=== PATIENT | female | born 1950 | race Caucasian/White ===

== ENCOUNTER 2017-10-15 19:04 | Inpatient (IN) | payer OTHER, MEDICARE ==
[~2017-10-15] VITALS: Ht 157.5 cm; Wt 84.1 kg
[~2017-10-15 19:04] MED LIST: ACYC400 PO; ACYC800 PO; ALPR.5 PO; ALPR1 PO; AZIT250 PO; Ativan1 MG PO; CHOL10002; CHOL10002 PO; CIPR500 PO; CLOT10 PO; COLE1 PO; CYAN1000 PO; FLUC150A PO; GABA100 PO; GENT.3OPO TOP; HYDPAM25 PO; IBUP800 PO; Imitrex100 MG PO; K-Dur20 MEQ PO; LEVO750 PO; LISHYD2025 PO; LISI20 PO; LORA.5 PO; LORA1 PO; LOSA25 PO; METO25 PO; METO50 PO; METR70GEL VAG; Magic Bullet10 MG PR; Metrocream45 GM TOP; OMEP20ER PO; OMEPRAZOLE MAGN20 MG PO; ONDA8 PO; OXYC10TA19 PO; OXYC15ER PO; OXYC5 PO; PHENA200 PO; POTCHL10ER PO; PROM25 PO; QUET100 PO; ROPI1 PO; SERT100 PO; SUMA25 PO; SUMA6I SC; Seroquel Xr50 MG PO; TRAZ100 PO; ZOLP10 PO; ZOLP5 PO; [UNRECOGNIZED DRUG - REMARK]; oxycodone
[2017-10-15 19:51] LABS: BASOPHILS ABSOLUTE AUTO 0.04 K/mm3 (0.00-0.23); BASOPHILS PERCENT AUTO 0 % (0-2); EOSINOPHILS ABSOLUTE AUTO 0.02 K/mm3 (0.00-0.68); EOSINOPHILS PERCENT AUTO 0 % (0-6); Hemoglobin 11.8 g/dL (11.5-16.0); IMMATURE GRAN ABSOLUTE AUTO 0.07 K/mm3 (0.00-0.10); IMMATURE GRAN PERCENT AUTO 1 % (0-1); LYMPHOCYTES ABSOLUTE AUTO 3.37 K/mm3 (0.84-5.20); LYMPHOCYTES PERCENT AUTO 26 % (21-46); MONOCYTES ABSOLUTE AUTO 0.84 K/mm3 (0.16-1.47); MONOCYTES PERCENT AUTO 6 % (4-13); Mean Corpuscular HGB 27.4 pg (26.0-34.0); Mean Corpuscular HGB Conc 31.1 g/dL (31.5-36.5); Mean Corpuscular Volume 88 fL (80-100); NEUTROPHILS ABSOLUTE AUTO 8.83 K/mm3 (1.96-9.15); NEUTROPHILS PERCENT AUTO 67 % (41-73); Platelet Count 395 K/mm3 (150-400); RDW Standard Deviation 48.3 fL (35.1-46.3); Red Blood Cell Count 4.31 M/mm3 (3.80-5.20); White Blood Cell Count 13.17 K/mm3 (4.00-11.30)
[2017-10-15 20:09] LABS: Alanine Aminotransfer (ALT/SGP 36 U/L (12-78); Albumin, Blood 4.4 g/dL (3.4-5.0); Alk Phos 117 U/L (50-136); Anion Gap 14 mmol/L (6-16); Aspartate Aminotrans (AST/SGOT 23 U/L (12-37); Bilirubin, Total 0.7 mg/dL (0.1-1.0); Blood Urea Nitrogen 14 mg/dL (8-24); Bun/Creatinine Ratio 23.1 (12.0-20.0); CO2, Blood 23 mmol/L (21-32); Calcium, Blood 9.5 mg/dL (8.5-10.1); Chloride, Blood 106 mmol/L (98-108); Creatinine, Blood 0.61 mg/dL (0.40-1.00); Ethanol (Alcohol), Blood, Med <3 mg/dL; Globulin, Blood 4.4 g/dL (2.2-4.0); Glomerular Filtration Rate >60 (60-); Glucose, Blood 129 mg/dL (70-99); Potassium, Blood 3.2 mmol/L (3.5-5.5); Sodium, Blood 143 mmol/L (136-145); Total Protein, Blood 8.8 g/dL (6.4-8.2)
[2017-10-15 20:34] LABS: Bicarbonate Venous 25.6 mmol/L (24.0-30.0); PCO2 Venous 33.4 mmHg (38-42); PO2 Venous 72.1 mmHg (38-42); pH Blood Venous 7.48 (7.34-7.37)
[2017-10-15 20:41] LABS: Troponin I <0.015 ng/mL (0.000-0.040)
[2017-10-15 20:43] LABS: Thyroid Stimulating Hormone 0.256 uIU/mL (0.360-4.800)
[2017-10-15 20:57] LABS: Salicylate 1.8 mg/dL (2.8-20.0)
[2017-10-15 21:06] LABS: Acetaminophen, Random <2.0 ug/mL (10.0-30.0)
[2017-10-15 21:16] LABS: Source, Urine Catheter
[2017-10-15 21:17] LABS: Bilirubin, Urine Neg (Neg); Blood, Urine 4+ (Neg); Glucose Qualitative, Urine Neg (Neg); Ketones, Urine 4+ (Neg); Leukocyte Esterase, Urine Neg (Neg); Nitrite, Urine Neg (Neg); Protein, Urine 3+ (Neg); Specific Gravity, Urine 1.015 (1.003-1.022); Urobilinogen, Urine NORM (Normal)
[2017-10-15] MEDS ORDERED: LITH300C PO (21:29)
[2017-10-15] MEDS ORDERED: Pyridium100 MG PO (21:29)
[2017-10-15 21:30] LABS: U Amphetamine Screen Not Detected; U Methamphetamine Screen Not Detected
[2017-10-15 21:31] LABS: U Barbituate Screen Not Detected; U Benzodiazapine Screen DETECTED; U Buprenorphine Screen Not Detected; U Cannabinoids Screen DETECTED; U Cocaine Screen Not Detected; U Methadone Screen Not Detected; U Opiates Screen Not Detected; U Oxycodone Screen DETECTED; U Phencyclidine Screen Not Detected; U Propoxyphene Screen Not Detected
[2017-10-15] MEDS ORDERED: CLON.1 PO (21:31)
[2017-10-15 21:32] LABS: Appearance, Urine Clear (Clear); Color, Urine Yellow (P-Yellow)
[2017-10-15 21:33] LABS: Bacteria Few /hpf; Mucus Light (0-Heavy); Squamous Epithelial Cells Not Seen /hpf (Few)
[2017-10-15 22:02] LABS: Lithium <0.20 mmol/L (0.60-1.20)
[2017-10-16 05:47] LABS: Alanine Aminotransfer (ALT/SGP 32 U/L (12-78); Albumin, Blood 3.9 g/dL (3.4-5.0); Alk Phos 100 U/L (50-136); Anion Gap 13 mmol/L (6-16); Aspartate Aminotrans (AST/SGOT 17 U/L (12-37); Blood Urea Nitrogen 11 mg/dL (8-24); Bun/Creatinine Ratio 19.7 (12.0-20.0); CO2, Blood 22 mmol/L (21-32); Calcium, Blood 8.9 mg/dL (8.5-10.1); Chloride, Blood 107 mmol/L (98-108); Creatinine, Blood 0.56 mg/dL (0.40-1.00); Glomerular Filtration Rate >60 (60-); Glucose, Blood 105 mg/dL (70-99); Potassium, Blood 3.2 mmol/L (3.5-5.5); Sodium, Blood 142 mmol/L (136-145); Total Protein, Blood 7.9 g/dL (6.4-8.2)
== END 2017-10-17 11:37 | disposition home or self-care (01) | DRG 92 ==
LOC: ER 19:04 → MEDS 22:03 → ENPENDDIS 10-17 09:39 → MEDS 10-17 11:37
PROVIDERS: Emergency Medicine; Hospitalist
DX: G92 Toxic encephalopathy (principal); F11.20 Opioid dependence, uncomplicated; I12.9 Hypertensive chronic kidney disease with stage 1 through stage 4 chronic kidney disease, or unspecified chronic kidney disease; N18.9 Chronic kidney disease, unspecified; E87.6 Hypokalemia; G89.29 Other chronic pain; M54.9 Dorsalgia, unspecified; F32.9 Major depressive disorder, single episode, unspecified; G47.30 Sleep apnea, unspecified; F41.9 Anxiety disorder, unspecified; F10.21 Alcohol dependence, in remission; K21.9 Gastro-esophageal reflux disease without esophagitis; Z79.899 Other long term (current) drug therapy; Z90.710 Acquired absence of both cervix and uterus; Z90.49 Acquired absence of other specified parts of digestive tract; Z87.440 Personal history of urinary (tract) infections
CPT/HCPCS: 36415; 70450; 71045; 80053; 80178; 81001; 82803; 82947; 84439; 84443; 84484; 85025; 93005; 93010; 96361; 96374; 99285; G0480; J1650; J2060; J7030; J7120; P9612

== ENCOUNTER 2017-10-20 01:33 | Inpatient (IN) | payer MEDICARE ==
[~2017-10-20] VITALS: Ht 157.5 cm; Wt 82.5 kg
[~2017-10-20 01:33] MED LIST changes: +CLON.2 PO; +LITH300C PO; +Pyridium100 MG PO
[2017-10-20 02:03] LABS: BASOPHILS ABSOLUTE AUTO 0.04 K/mm3 (0.00-0.23); BASOPHILS PERCENT AUTO 0 % (0-2); EOSINOPHILS ABSOLUTE AUTO 0.07 K/mm3 (0.00-0.68); EOSINOPHILS PERCENT AUTO 1 % (0-6); Hematocrit 40.4 % (33.0-51.0); IMMATURE GRAN ABSOLUTE AUTO 0.07 K/mm3 (0.00-0.10); IMMATURE GRAN PERCENT AUTO 1 % (0-1); LYMPHOCYTES ABSOLUTE AUTO 4.08 K/mm3 (0.84-5.20); LYMPHOCYTES PERCENT AUTO 35 % (21-46); MONOCYTES ABSOLUTE AUTO 0.78 K/mm3 (0.16-1.47); MONOCYTES PERCENT AUTO 7 % (4-13); Mean Corpuscular HGB 28.3 pg (26.0-34.0); Mean Corpuscular HGB Conc 32.2 g/dL (31.5-36.5); Mean Corpuscular Volume 88 fL (80-100); Mean Platelet Volume 11.2 fL (9.1-12.4); NEUTROPHILS ABSOLUTE AUTO 6.59 K/mm3 (1.96-9.15); NEUTROPHILS PERCENT AUTO 57 % (41-73); Platelet Count 351 K/mm3 (150-400); RDW Coefficient Variation 14.8 % (11.7-14.2); RDW Standard Deviation 47.8 fL (35.1-46.3); Red Blood Cell Count 4.59 M/mm3 (3.80-5.20); White Blood Cell Count 11.63 K/mm3 (4.00-11.30)
[2017-10-20 02:19] LABS: International Normalized Ratio 1.02; Prothrombin Time Results 10.5 Sec (9.7-11.5)
[2017-10-20 02:21] LABS: Anion Gap 13 mmol/L (6-16); Blood Urea Nitrogen 24 mg/dL (8-24); Bun/Creatinine Ratio 10.1 (12.0-20.0); CO2, Blood 22 mmol/L (21-32); Calcium, Blood 8.8 mg/dL (8.5-10.1); Chloride, Blood 104 mmol/L (98-108); Creatinine, Blood 2.38 mg/dL (0.40-1.00); Ethanol (Alcohol), Blood, Med <3 mg/dL; Glomerular Filtration Rate 22 (60-); Glucose, Blood 118 mg/dL (70-99); Potassium, Blood 3.4 mmol/L (3.5-5.5); Sodium, Blood 139 mmol/L (136-145); Troponin I <0.015 ng/mL (0.000-0.040)
[2017-10-20] MEDS ORDERED: DULO60 PO (02:31)
[2017-10-20 02:38] LABS: Blood, Urine 3+ (Neg); Glucose Qualitative, Urine Neg (Neg); Ketones, Urine 1+ (Neg); Leukocyte Esterase, Urine 1+ (Neg); Nitrite, Urine Pos (Neg); Protein, Urine 3+ (Neg); Urobilinogen, Urine 3+ (Normal)
[2017-10-20 02:39] LABS: Bilirubin, Urine 3+ (Neg); Color, Urine Orange (P-Yellow)
[2017-10-20 02:40] LABS: Appearance, Urine Hazy (Clear)
[2017-10-20 02:41] LABS: Amorphous Light (0-Heavy); Bacteria Mod /hpf; Granular Casts 0-2 /lpf (0); Hyaline Casts 25-50 /lpf (0-2); Red Blood Cells, Urine Rare /hpf (0-2); Squamous Epithelial Cells Not Seen /hpf (Few); White Blood Cells, Urine 50-100 /hpf (0-5)
[2017-10-20 02:43] LABS: U Amphetamine Screen Not Detected; U Barbituate Screen Not Detected; U Benzodiazapine Screen DETECTED; U Buprenorphine Screen Not Detected; U Cannabinoids Screen DETECTED; U Cocaine Screen Not Detected; U Methadone Screen Not Detected; U Methamphetamine Screen Not Detected; U Opiates Screen Not Detected; U Oxycodone Screen DETECTED; U Phencyclidine Screen Not Detected; U Propoxyphene Screen Not Detected
[2017-10-20 03:52] LABS: Alanine Aminotransfer (ALT/SGP 36 U/L (12-78); Albumin, Blood 4.4 g/dL (3.4-5.0); Albumin/Globulin Ratio 1.1 (0.8-1.8); Alk Phos 109 U/L (50-136); Aspartate Aminotrans (AST/SGOT 26 U/L (12-37); Bilirubin, Total 0.5 mg/dL (0.1-1.0); Globulin, Blood 4.1 g/dL (2.2-4.0); Total Protein, Blood 8.5 g/dL (6.4-8.2)
[2017-10-20] MEDS ORDERED: SUMATRIPTAN SC (04:46)
[2017-10-20 12:25] LABS: Lithium <0.20 mmol/L (0.60-1.20)
[2017-10-21 04:37] LABS: BASOPHILS ABSOLUTE AUTO 0.03 K/mm3 (0.00-0.23); BASOPHILS PERCENT AUTO 0 % (0-2); EOSINOPHILS ABSOLUTE AUTO 0.18 K/mm3 (0.00-0.68); EOSINOPHILS PERCENT AUTO 3 % (0-6); Hematocrit 32.2 % (33.0-51.0); Hemoglobin 10.3 g/dL (11.5-16.0); IMMATURE GRAN ABSOLUTE AUTO 0.02 K/mm3 (0.00-0.10); IMMATURE GRAN PERCENT AUTO 0 % (0-1); LYMPHOCYTES ABSOLUTE AUTO 3.23 K/mm3 (0.84-5.20); LYMPHOCYTES PERCENT AUTO 46 % (21-46); MONOCYTES ABSOLUTE AUTO 0.47 K/mm3 (0.16-1.47); MONOCYTES PERCENT AUTO 7 % (4-13); Mean Corpuscular HGB 28.3 pg (26.0-34.0); Mean Corpuscular Volume 89 fL (80-100); Mean Platelet Volume 11.5 fL (9.1-12.4); NEUTROPHILS ABSOLUTE AUTO 3.09 K/mm3 (1.96-9.15); NEUTROPHILS PERCENT AUTO 44 % (41-73); Platelet Count 267 K/mm3 (150-400); RDW Coefficient Variation 14.6 % (11.7-14.2); RDW Standard Deviation 46.7 fL (35.1-46.3); Red Blood Cell Count 3.64 M/mm3 (3.80-5.20); White Blood Cell Count 7.02 K/mm3 (4.00-11.30)
[2017-10-21 05:13] LABS: Alanine Aminotransfer (ALT/SGP 18 U/L (12-78); Albumin, Blood 3.1 g/dL (3.4-5.0); Albumin/Globulin Ratio 0.9 (0.8-1.8); Alk Phos 79 U/L (50-136); Anion Gap 9 mmol/L (6-16); Aspartate Aminotrans (AST/SGOT 12 U/L (12-37); Bilirubin, Total 0.5 mg/dL (0.1-1.0); Blood Urea Nitrogen 12 mg/dL (8-24); Bun/Creatinine Ratio 16.2 (12.0-20.0); CO2, Blood 24 mmol/L (21-32); Calcium, Blood 7.9 mg/dL (8.5-10.1); Chloride, Blood 110 mmol/L (98-108); Creatinine, Blood 0.74 mg/dL (0.40-1.00); Globulin, Blood 3.3 g/dL (2.2-4.0); Glomerular Filtration Rate >60 (60-); Glucose, Blood 98 mg/dL (70-99); Potassium, Blood 3.3 mmol/L (3.5-5.5); Sodium, Blood 143 mmol/L (136-145)
[2017-10-21 05:27] LABS: Total Protein, Blood 6.4 g/dL (6.4-8.2)
[2017-10-22 05:47] LABS: Anion Gap 11 mmol/L (6-16); Blood Urea Nitrogen 10 mg/dL (8-24); Bun/Creatinine Ratio 13.6 (12.0-20.0); CO2, Blood 24 mmol/L (21-32); Calcium, Blood 8.9 mg/dL (8.5-10.1); Chloride, Blood 108 mmol/L (98-108); Creatinine, Blood 0.73 mg/dL (0.40-1.00); Glomerular Filtration Rate >60 (60-); Glucose, Blood 121 mg/dL (70-99); Potassium, Blood 3.2 mmol/L (3.5-5.5); Sodium, Blood 143 mmol/L (136-145)
[2017-10-22] MEDS ORDERED: ROXICODONE5 MG PO (12:02)
[2017-10-22] MEDS ORDERED: Acetaminophen325 M1 PO (12:03)
[2017-10-22] MEDS ORDERED: BENZ2 PO (12:04)
[2017-10-22] MEDS ORDERED: Haldol 5 mg Tab5 MG PO (12:06)
== END 2017-10-22 14:42 | disposition home or self-care (01) | DRG 92 ==
LOC: ER 01:33 → MEDS 03:05 → ENPENDDIS 10-22 10:42 → MEDS 10-22 14:42
PROVIDERS: Emergency Medicine; Internal Medicine
DX: G92 Toxic encephalopathy (principal); N17.9 Acute kidney failure, unspecified; F32.3 Major depressive disorder, single episode, severe with psychotic features; N39.0 Urinary tract infection, site not specified; T40.605A Adverse effect of unspecified narcotics, initial encounter; F32.9 Major depressive disorder, single episode, unspecified; R33.9 Retention of urine, unspecified; F29 Unspecified psychosis not due to a substance or known physiological condition; E86.0 Dehydration; G89.4 Chronic pain syndrome; G43.909 Migraine, unspecified, not intractable, without status migrainosus; E66.01 Morbid (severe) obesity due to excess calories; G47.30 Sleep apnea, unspecified; E78.5 Hyperlipidemia, unspecified; I12.9 Hypertensive chronic kidney disease with stage 1 through stage 4 chronic kidney disease, or unspecified chronic kidney disease; N18.9 Chronic kidney disease, unspecified; Z66 Do not resuscitate; Z68.31 Body mass index [BMI] 31.0-31.9, adult; Z91.040 Latex allergy status; Z79.899 Other long term (current) drug therapy; Z88.8 Allergy status to other drugs, medicaments and biological substances; Z88.5 Allergy status to narcotic agent; Z88.2 Allergy status to sulfonamides; Z90.49 Acquired absence of other specified parts of digestive tract; Z90.710 Acquired absence of both cervix and uterus
CPT/HCPCS: 36415; 70450; 71045; 74018; 76770; 80048; 80053; 80178; 81001; 84443; 84484; 85025; 85610; 87086; 92526; 92610; 93005; 93010; 96360; 99285; G0480; G8996; G8997; G8998; J0360; J0696; J1630; J1650; J2060; J7030; P9612

== ENCOUNTER 2018-12-09 00:28 | Observation (INO) | payer MEDICARE ==
[~2018-12-09] VITALS: Ht 157.5 cm; Wt 105.2 kg
[~2018-12-09 00:28] MED LIST changes: +Acetaminophen325 M1 PO; +BENZ2 PO; +DULO60 PO; +Haldol 5 mg Tab5 MG PO; +ROXICODONE5 MG PO; +SUMATRIPTAN SC
[2018-12-09 01:59] LABS: Bilirubin, Total 0.3 mg/dL (0.1-1.0); Bun/Creatinine Ratio 8.1 (12.0-20.0); Calcium, Blood 8.8 mg/dL (8.5-10.1); Creatinine, Blood 2.36 mg/dL (0.40-1.00); Globulin, Blood 4.1 g/dL (2.2-4.0); Potassium, Blood 3.4 mmol/L (3.5-5.5); Total Protein, Blood 8.1 g/dL (6.4-8.2)
[2018-12-09 02:06] LABS: BASOPHILS ABSOLUTE AUTO 0.04 K/mm3 (0.00-0.23); BASOPHILS PERCENT AUTO 0 % (0-2); EOSINOPHILS ABSOLUTE AUTO 0.19 K/mm3 (0.00-0.68); EOSINOPHILS PERCENT AUTO 2 % (0-6); Hematocrit 40.9 % (33.0-51.0); Hemoglobin 12.6 g/dL (11.5-16.0); IMMATURE GRAN ABSOLUTE AUTO 0.04 K/mm3 (0.00-0.10); IMMATURE GRAN PERCENT AUTO 0 % (0-1); LYMPHOCYTES ABSOLUTE AUTO 3.96 K/mm3 (0.84-5.20); LYMPHOCYTES PERCENT AUTO 32 % (21-46); MONOCYTES ABSOLUTE AUTO 0.89 K/mm3 (0.16-1.47); MONOCYTES PERCENT AUTO 7 % (4-13); Mean Corpuscular HGB 28.4 pg (26.0-34.0); Mean Corpuscular HGB Conc 30.8 g/dL (31.5-36.5); Mean Corpuscular Volume 92 fL (80-100); Mean Platelet Volume 11.2 fL (9.1-12.4); NEUTROPHILS PERCENT AUTO 59 % (41-73); Platelet Count 313 K/mm3 (150-400); RDW Coefficient Variation 15.4 % (11.7-14.2); RDW Standard Deviation 52.3 fL (35.1-46.3); Red Blood Cell Count 4.44 M/mm3 (3.80-5.20); White Blood Cell Count 12.42 K/mm3 (4.00-11.30)
[2018-12-09 03:12] LABS: Ethanol (Alcohol), Blood, Med <3 mg/dL; Magnesium, Blood 2.1 mg/dL (1.6-2.4)
[2018-12-09 03:24] LABS: Source, Urine Clean Catch
[2018-12-09 03:26] LABS: Blood, Urine 2+ (Neg); Glucose Qualitative, Urine Neg (Neg); Ketones, Urine 1+ (Neg); Leukocyte Esterase, Urine 1+ (Neg); Nitrite, Urine Neg (Neg); Protein, Urine 2+ (Neg); Specific Gravity, Urine 1.025 (1.003-1.022); Urobilinogen, Urine NORM (Normal)
[2018-12-09] MEDS ORDERED: VERA180ERB PO (03:36)
[2018-12-09] MEDS ORDERED: SEROQUEL (03:37)
[2018-12-09] MEDS ORDERED: RISP1 PO (03:37)
[2018-12-09] MEDS ORDERED: IMIP25 PO (03:38)
[2018-12-09 03:39] LABS: U Amphetamine Screen Not Detected; U Barbituate Screen Not Detected; U Benzodiazapine Screen DETECTED; U Buprenorphine Screen Not Detected; U Cannabinoids Screen DETECTED; U Cocaine Screen Not Detected; U Methadone Screen Not Detected; U Methamphetamine Screen Not Detected; U Opiates Screen DETECTED; U Oxycodone Screen DETECTED; U Phencyclidine Screen Not Detected; U Propoxyphene Screen Not Detected
[2018-12-09] MEDS ORDERED: ZOFRAN (03:39)
[2018-12-09 03:40] LABS: Appearance, Urine Hazy (Clear); Bilirubin, Urine 2+ (Neg); Color, Urine Amber (P-Yellow)
[2018-12-09 03:41] LABS: Amorphous Mod ({null, 0-Heavy}); Bacteria Mod /hpf; Squamous Epithelial Cells Not Seen /hpf (Few)
--- NOTE | 2018-12-09 06:22 | NUR ---
PATIENT IS A NEW ADMIT FROM THE ED. FOUR PERSON TRANSFER FROM [facility] TO BED. AXOX 3 AND SLOW TO RESPOND. NS INFUSING FROM THE ED WITHOUT A PUMP. PATIENT ORIENTED TO ROOM AND CALL LIGHT SYSTEM. SPOUSE PRESENT FOR ADMIT AND LEFT WHEN ASSESSMENT COMPLETE. DENIES PAIN, SOB, AND N/V. CALL LIGHT IN REACH.
--- NOTE | 2018-12-09 16:50 | NUR ---
SHIFT SUMMARY: PT IS ALERT TO SELF AND SITUATION AND SLEPT ALL MORNING UNTIL AROUND LUNCH TIME WHEN SHE WOKE UP C/O A MIGRAINE. DR DWYER WAS CALLED AND MESSAGE LEFT AND PT WAS NOTIFIED OF THIS AND BECAME VERY AGGITATED. WAS CALLED BACK AND ORDER WAS INPUT FOR IMMATREX. PT RECEIVED MED ORDERED ALONG WITH ICE PACKS FOR MIGRAINE PAIN, LIGHTS WERE DIMMED AND PT WAS ABLE TO FALL ASLEEP. PT REPORTS THAT THE IMMATREX WAS EFFECTIVE EVEN THOUGH SHE USUALLY TAKES THE PILL AND THE SHOT AT HOME. PT WAS HERE THIS AFTERNOON AND IS VERY INVOLVED IN PT CARE. SHE CALLS FOR HELP WITH CALL LIGHT WHEN NEEDED.
--- NOTE | 2018-12-09 17:14 | NUR ---
PT IS VERY AGITATED AND YELLING ABOUT NOT RECEIVING HER INJECTIBLE MEDICATION FOR HER MIGRAINE. THE DOCTOR HAD BEEN NOTIFIED AND THE PHARMACY SENT THE MEDICATION BUT THE PT CONTINUES TO YELL STATING SHE SHOULD HAVE HAD THIS HOURS AGO. PT IS VERY EMOTIONALLY LABILE AND IS REQUESTING HER . THIS NURSE CALLED TO NOTIFIED OF PT REQUEST.
--- NOTE | 2018-12-09 17:42 | NUR ---
PT ARRIVED AT BEDSIDE AND PT HAS CALMED DOWN ALTHOUGH STILL TEARFUL AND APOLOGIZED FOR YELLING.
--- NOTE | 2018-12-09 22:35 | NUR ---
PATIENT BP 195/80. HOSPITALIST DR OLIVERA ORDERED PO APRESOLINE 10 MG Q6 PRN FOR SBP >180. ALSO, PATIENT TAKES ISOPTIN-SR 180 MG AND ADDED TO EMAR TO START THIS SHIFT. WILL REASSESS. NOTE PATIENT BP ELEVATED DURING MIGRAINE EVENT ON DAY SHIFT APPROX 15:30. PATIENT RESTING WATCHING TV.
--- NOTE | 2018-12-09 23:38 | NUR ---
BP REASSESSED AT 165/80. CALL LIGHT IN REACH.
--- NOTE | 2018-12-10 00:18 | NUR ---
PATIENT CALM AND COOPERATIVE AFTER BEING AGITATED AT SHIFT CHANGE. MENTATION HAS IMPROVED SINCE LAST NOC SHIFT. CALL LIGHT IN REACH.
--- NOTE | 2018-12-10 04:08 | NUR ---
SHIFT SUMMARY PATIENT'S MENTATION HAS IMPROVED SINCE LAST NOC SHIFT. PATIENT ABLE TO HOLD A CONVERSATION WITHOUT PAUSES. AXO X3 AND ONE ASSIST TO BSC. PATIENT WALKED [place] X ONE WITH TRADE FACILITATOR. BP ELEVATED THIS SHIFT. HOSPITALIST DR OLIVERA ORDERED APRESOLINE PO 10 MG Q6 PRN FOR SBP >180. (SEE NOTES). NO MIGRAINES EVENTS. PIV REMAINS INTACT. IV ABX INFUSED. SPOUSE PRESENT FIRST HALF OF SHIFT. PATIENT REPORTS URINARY FREQUENCY AND BSC IN USE. CALL LIGHT IN REACH. BED IN LOWEST POSITION. WILL CONTINUE TO MONITOR UNTIL DAY RN ASSUMES CARE.
--- NOTE | 2018-12-10 06:35 | NUR ---
BP ELEVATED TO 196/93. PATIENT REPORTS CHRONIC HEADACHE. APRESOLINE 10 MG PO PRN GIVEN PER EMAR. REASSESSED AT 175/74.
[2018-12-10 07:56] LABS: BASOPHILS ABSOLUTE AUTO 0.03 K/mm3 (0.00-0.23); BASOPHILS PERCENT AUTO 0 % (0-2); EOSINOPHILS ABSOLUTE AUTO 0.02 K/mm3 (0.00-0.68); EOSINOPHILS PERCENT AUTO 0 % (0-6); Hematocrit 41.1 % (33.0-51.0); Hemoglobin 13.2 g/dL (11.5-16.0); IMMATURE GRAN ABSOLUTE AUTO 0.03 K/mm3 (0.00-0.10); IMMATURE GRAN PERCENT AUTO 0 % (0-1); LYMPHOCYTES ABSOLUTE AUTO 1.66 K/mm3 (0.84-5.20); LYMPHOCYTES PERCENT AUTO 19 % (21-46); MONOCYTES ABSOLUTE AUTO 0.63 K/mm3 (0.16-1.47); MONOCYTES PERCENT AUTO 7 % (4-13); Mean Corpuscular HGB 28.1 pg (26.0-34.0); Mean Corpuscular HGB Conc 32.1 g/dL (31.5-36.5); Mean Platelet Volume 10.5 fL (9.1-12.4); NEUTROPHILS ABSOLUTE AUTO 6.35 K/mm3 (1.96-9.15); NEUTROPHILS PERCENT AUTO 73 % (41-73); Platelet Count 346 K/mm3 (150-400); RDW Standard Deviation 48.5 fL (35.1-46.3); White Blood Cell Count 8.72 K/mm3 (4.00-11.30)
[2018-12-10 08:00] LABS: Mean Corpuscular Volume 87 fL (80-100)
[2018-12-10 08:12] LABS: Anion Gap 8 mmol/L (6-16); Blood Urea Nitrogen 5 mg/dL (8-24); Bun/Creatinine Ratio 8.7 (12.0-20.0); CO2, Blood 28 mmol/L (21-32); Calcium, Blood 9.1 mg/dL (8.5-10.1); Chloride, Blood 105 mmol/L (98-108); Creatinine, Blood 0.58 mg/dL (0.40-1.00); Glomerular Filtration Rate >60 (60-); Glucose, Blood 143 mg/dL (70-99); Phosphorus, Blood 1.4 mg/dL (2.5-4.9); Potassium, Blood 3.2 mmol/L (3.5-5.5); Sodium, Blood 141 mmol/L (136-145)
--- NOTE | 2018-12-10 17:02 | NUR ---
SHIFT SUMMARY: PT IS A/O X 3 WITH MOMENTS OF CONFUSION. THIS MORNING PT REPORTED A BRAUN AND HER BP WAS ELEVATED. DR LANTIGUA WAS NOTIFIED AND GAVE ORDERS FOR IV BP MEDS. HER BP CONTINUED TO BE ELEVATED AND PO MEDS WERE GIVEN AFTER NAUSEA SUBSIDED. BP IS NOW WNL AND PT REPORTS NO MORE BRAUN OR NAUSEA. PT HAS DECLINED MEALS BUT SHE WAS ABLE TO EAT A JELLO AND A COUPLE GRAHM CRACKERS. PT WAS AT BEDSIDE MOST OF DAY. SHE IS RESTING NOW AND USES CALL LIGHT FOR HELP WHEN NEEDED.
--- NOTE | 2018-12-11 03:33 | NUR ---
SHIFT SUMMARY PATIENT BP DOWN TO 152/89 AT SHIFT CHANGE. AXOX 3 AND ONE ASSIST TO BSC. VSS/AFEBRILE. DENIES MIGRAINES,SOB, AND N/V. PIV REMAINS INTACT. IV ABX INFUSED. SPOUSE PRESENT BEGINNING OF SHIFT AND SON LATER IN SHIFT. TAKES MEDICATION WHOLE WITH WATER. NO ACUTE CHANGES OBSERVED THIS SHIFT. CALL LIGHT IN REACH. BED IN LOWEST POSITION. WILL CONTINUE TO MONITOR UNTIL DAY SHIFT NURSE ASSUMES CARE.
[2018-12-11 04:45] LABS: BASOPHILS ABSOLUTE AUTO 0.02 K/mm3 (0.00-0.23); BASOPHILS PERCENT AUTO 0 % (0-2); EOSINOPHILS ABSOLUTE AUTO 0.04 K/mm3 (0.00-0.68); EOSINOPHILS PERCENT AUTO 0 % (0-6); Hematocrit 36.8 % (33.0-51.0); Hemoglobin 11.7 g/dL (11.5-16.0); IMMATURE GRAN ABSOLUTE AUTO 0.04 K/mm3 (0.00-0.10); IMMATURE GRAN PERCENT AUTO 0 % (0-1); LYMPHOCYTES ABSOLUTE AUTO 2.41 K/mm3 (0.84-5.20); LYMPHOCYTES PERCENT AUTO 22 % (21-46); MONOCYTES ABSOLUTE AUTO 0.81 K/mm3 (0.16-1.47); MONOCYTES PERCENT AUTO 8 % (4-13); Mean Corpuscular HGB 28.1 pg (26.0-34.0); Mean Corpuscular HGB Conc 31.8 g/dL (31.5-36.5); Mean Corpuscular Volume 89 fL (80-100); Mean Platelet Volume 10.8 fL (9.1-12.4); NEUTROPHILS ABSOLUTE AUTO 7.48 K/mm3 (1.96-9.15); NEUTROPHILS PERCENT AUTO 69 % (41-73); Platelet Count 324 K/mm3 (150-400); RDW Coefficient Variation 15.4 % (11.7-14.2); RDW Standard Deviation 49.5 fL (35.1-46.3); Red Blood Cell Count 4.16 M/mm3 (3.80-5.20)
[2018-12-11 05:08] LABS: Albumin, Blood 3.3 g/dL (3.4-5.0); Anion Gap 9 mmol/L (6-16); Blood Urea Nitrogen 10 mg/dL (8-24); Bun/Creatinine Ratio 13.4 (12.0-20.0); CO2, Blood 27 mmol/L (21-32); Calcium, Blood 8.3 mg/dL (8.5-10.1); Chloride, Blood 105 mmol/L (98-108); Creatinine, Blood 0.75 mg/dL (0.40-1.00); Glomerular Filtration Rate >60 (60-); Glucose, Blood 158 mg/dL (70-99); Phosphorus, Blood 2.4 mg/dL (2.5-4.9); Sodium, Blood 141 mmol/L (136-145)
--- NOTE | 2018-12-11 09:56 | NUR ---
PT DCD HOME WITH . ALL MEDICATION AND F/U REVIEWED WITH PT AND . STATED HE ALREADY CALLED TO SCHEDULE F/U WITH PCP. ALL BELONGINGS SENT WITH PT. PT STABLE UPON DC.
== END 2018-12-11 10:01 | disposition home or self-care (01) ==
LOC: ER 00:28 → MEDS 00:29 → ENPENDDIS 12-11 08:09 → MEDS 12-11 10:01
PROVIDERS: Emergency Medicine; Internal Medicine; ADMIT Hospitalist
DX: G92 Toxic encephalopathy (principal); N17.9 Acute kidney failure, unspecified; I10 Essential (primary) hypertension; G43.909 Migraine, unspecified, not intractable, without status migrainosus; F32.9 Major depressive disorder, single episode, unspecified; R30.0 Dysuria; F41.9 Anxiety disorder, unspecified; G47.30 Sleep apnea, unspecified; G89.29 Other chronic pain; E66.01 Morbid (severe) obesity due to excess calories; Z87.891 Personal history of nicotine dependence; Z88.6 Allergy status to analgesic agent; Z88.5 Allergy status to narcotic agent; Z91.09 Other allergy status, other than to drugs and biological substances; Z91.040 Latex allergy status; Z79.899 Other long term (current) drug therapy; Z68.41 Body mass index [BMI] 40.0-44.9, adult
CPT/HCPCS: 36415; 51701; 70450; 80053; 80069; 81001; 83735; 83880; 85025; 87086; 93005; 93010; 96361; 96365-59; 96366; 96372; 96375; 99285-25; G0378; G0480; J0360; J0696; J1650; J3030; J7030; J7050; J7060

== ENCOUNTER → 2021-12-08 | Outpatient (CLI) | payer OTHER ==
[~2021-12-08] MED LIST changes: +IMIP25 PO; +RISP1 PO; +SEROQUEL; +VERA180ERB PO; +ZOFRAN
[2021-12-08 13:19] LABS: Microalbumin, Urine Quant. 38.4 mg/L (0.000-20.000)
== END | disposition home or self-care (01) ==
LOC: LAB SHORT 07:00
PROVIDERS: Internal Medicine Nephrology
DX: N18.30 Chronic kidney disease, stage 3 unspecified (principal); D63.1 Anemia in chronic kidney disease; N25.81 Secondary hyperparathyroidism of renal origin; E55.9 Vitamin D deficiency, unspecified; E78.00 Pure hypercholesterolemia, unspecified; D51.8 Other vitamin B12 deficiency anemias; D52.8 Other folate deficiency anemias; R76.9 Abnormal immunological finding in serum, unspecified; R94.5 Abnormal results of liver function studies; R94.6 Abnormal results of thyroid function studies
CPT/HCPCS: 81050; 82043; 82570; 84156

== ENCOUNTER → 2024-11-21 | Outpatient (CLI) | payer OTHER | LOC: LAB 12:40 → LAB SHORT 12:40 | PROVIDERS: Internal Medicine | DX: N39.0 Urinary tract infection, site not specified (principal) | CPT/HCPCS: 81015 ==

== ENCOUNTER → 2024-12-13 | Outpatient (CLI) | payer OTHER ==
[2024-12-13 07:50] LABS: Source, Urine Clean Catch
[2024-12-13 09:54] LABS: Bilirubin, Urine Neg (Neg); Color, Urine Yellow (P-Yellow); Glucose Qualitative, Urine Neg (Neg); Ketones, Urine Neg (Neg); Leukocyte Esterase, Urine Neg (Neg); Protein, Urine Neg (Neg); Specific Gravity, Urine 1.010 (1.003-1.022); Urobilinogen, Urine NORM (Normal)
[2024-12-13 10:01] LABS: Red Blood Cells, Urine 0-2 /hpf (0-2); White Blood Cells, Urine Not Seen /hpf (0-5)
== END | disposition home or self-care (01) ==
LOC: LAB 07:48 → LAB SHORT 07:48
PROVIDERS: Internal Medicine
DX: N39.0 Urinary tract infection, site not specified (principal)
CPT/HCPCS: 81001